=== PATIENT | female | born 1995 | race Caucasian/White ===

== ENCOUNTER 2023-07-16 19:58 | Inpatient (IN) | payer OTHER, SELFPAY ==
[2023-07-16 20:10] VITALS: BP 130/84; BMI 29.2
[2023-07-16 20:47] LABS: % Basophils 0.6 % (0-2); % Eosinophils 0.4 % (0-6); % Immature Granulocytes 0.6 % (0-0.5); % Lymphocytes 14.7 % (20.5-51.1); % Monocytes 7.6 % (1.7-9.3); % Neutrophils 76.1 % (42.2-75.2); Absolute Basophils 0.1 10^3/uL (0-0.2); Absolute Immature Granulocytes 0.1 10^3/uL (0-0.05); Absolute Lymphocytes 1.5 10^3/uL (1.2-3.4); Absolute Monocytes 0.8 10^3/uL (0.1-0.6); Absolute Neutrophils 7.6 10^3/uL (1.4-6.5); Hematocrit 35.6 % (37.0-47.0); Mean Corp Hgb Conc. 36.5 g/dL (33.0-37.0); Mean Corpuscular Hgb 31.3 pg (27.0-31.0); Mean Corpuscular Volume 85.6 fL (81.0-99.0); Mean Platelet Volume 10.4 fL (7.4-10.4); Nucleated Red Blood Cells % 0 %; Platelet Count 157 10^3/uL (130-400); Red Blood Cell Count 4.16 10^6/uL (4.20-5.40); Red Cell Dist. Width 13.6 % (11.5-14.5)
[2023-07-17] MEDS: LR 1000 IV ×2 (01:00→02:57)
[2023-07-17] MEDS: SUBLIMAZE 100 MCG EPIDURAL (02:41)
[2023-07-17] MEDS: FENTANYL/BUPIVACAINE 100 EPIDURAL (02:41)
[2023-07-17] MEDS: PITOCIN 30 UNITS/NSS 500 ML IV (04:57)
[2023-07-17] MEDS: MOTRIN 600 MG PO ×2 (14:48→21:03)
[2023-07-17] MEDS: SENOKOT-S 1 TABLET PO (14:48)
[2023-07-18 03:55] LABS: Hematocrit 34.3 % (37.0-47.0); Hemoglobin 12.2 g/dL (12.0-16.0)
[2023-07-18] MEDS: MOTRIN 600 MG PO (05:29)
[2023-07-20 14:34] LABS: Syphilis/T. pallidum Ab Reflex Negative (Negative)
== END 2023-07-18 11:09 | disposition home or self-care (01) | DRG 807 ==
LOC: LDRP 19:58
PROVIDERS: ADMITTING PHYSICIAN Obstetrics & Gynecology; FAMILY PHYSICIAN Family Medicine
PROC: 10E0XZZ Delivery of Products of Conception, External Approach (ICD-10-PCS; 2023-07-17)
PROC: 0HQ9XZZ Repair Perineum Skin, External Approach (ICD-10-PCS; 2023-07-17)
DX: O69.82X0 Labor and delivery complicated by other cord entanglement, without compression, not applicable or unspecified (principal); Z37.0 Single live birth; Z3A.39 39 weeks gestation of pregnancy; O70.0 First degree perineal laceration during delivery
CPT/HCPCS: 85014; 85018; 85025; 86780; 86850; 86900; 86901